=== PATIENT | male | born 1980 | race Caucasian/White ===

== ENCOUNTER 2018-05-22 10:14 | Emergency (ER) | payer SELFPAY ==
[~2018-05-22] VITALS: Ht 185.4 cm; Wt 101.1 kg
[2018-05-22] MEDS ORDERED: THIAMINE 100MG TABLET ONE (11:07)
[2018-05-22] MEDS ORDERED: LORazepam 1MG TABLET ONE (11:08)
[2018-05-22] MEDS ORDERED: THIAMINE 100MG TABLET PO ONE (11:30)
[2018-05-22] MEDS ORDERED: LORazepam 1MG TABLET PO ONE (11:30)
[2018-05-22 11:32] LABS: ALANINE AMINOTRANSFERASE 52 U/L (12-78); ALBUMIN 4.3 g/dL (3.4-5.0); ANION GAP 10 mmol/L (5-15); CALCIUM 8.9 mg/dL (8.5-10.1); CHLORIDE 106 mmol/L (98-107); CREATININE 0.79 mg/dL (0.7-1.3)
[2018-05-22 11:34] LABS: ALKALINE PHOSPHATASE 87 U/L (45-117); BILIRUBIN,TOTAL 0.3 mg/dL (0.2-1.0); TOTAL PROTEIN 7.4 g/dL (6.4-8.2)
[2018-05-22 11:38] LABS: BASOPHILS # (AUTO) 0.06 x10^3/uL (0-0.1); BASOPHILS % (AUTO) 1 % (0-1); EOSINOPHILS # (AUTO) 0.08 x10^3/uL (0-0.4); EOSINOPHILS % (AUTO) 1 % (1-7); LYMPHOCYTES # (AUTO) 1.77 x10^3/uL (1-3.4); LYMPHOCYTES % (AUTO) 26 % (22-44); MD NO; MEAN CORPUSCULAR HGB CONC 34.7 g/dL (33.2-36.2); MEAN CORPUSCULAR VOLUME 92.1 fL (81-97); MEAN PLATELET VOLUME 7.5 fL (7.4-10.4); MONOCYTES # (AUTO) 0.59 x10^3/uL (0.2-0.8); MONOCYTES % (AUTO) 8 % (2-9); NEUTROPHILS # (AUTO) 4.47 x10^3/uL (1.8-6.8); NEUTROPHILS % (AUTO) 64 % (42-75); PLATELET COUNT 334 x10^3/uL (130-400); RED BLOOD COUNT 4.97 x10^6/uL (4.38-5.82); RED CELL DISTRIBUTION WIDTH 12.9 % (9.4-14.8)
[2018-05-22 12:36] VITALS: BP 148/86
== END 2018-05-22 12:38 | disposition home or self-care (01) ==
LOC: ED 11:07
DX: F10.129 Alcohol abuse with intoxication, unspecified (principal); G40.909 Epilepsy, unspecified, not intractable, without status epilepticus; F17.210 Nicotine dependence, cigarettes, uncomplicated; Y90.9 Presence of alcohol in blood, level not specified
CPT/HCPCS: 36415; 80053; 85025; 93005; 99285

== ENCOUNTER 2018-07-31 17:14 | Emergency (ER) | payer SELFPAY ==
[~2018-07-31] VITALS: Ht 182.9 cm; Wt 105.1 kg
[2018-07-31 17:24] VITALS: BP 154/84
--- NOTE | 2018-07-31 18:14 | NUR ---
PT NOT IN ROOM. PT NOT SEEN IN BR, LOBBY, OR WHITE.
== END 2018-07-31 18:18 | disposition left against medical advice (07) ==
LOC: ED 17:35
DX: K08.89 Other specified disorders of teeth and supporting structures (principal); Z53.21 Procedure and treatment not carried out due to patient leaving prior to being seen by health care provider

== ENCOUNTER 2018-08-01 10:25 | Emergency (ER) | payer SELFPAY ==
[~2018-08-01] VITALS: Ht 185.4 cm; Wt 104.0 kg
[2018-08-01 10:31] VITALS: BP 161/93
--- NOTE | 2018-08-01 10:47 | NUR ---
PT TO ED FOR R DENTAL PAIN X4 DAYS. PA TO BEDSIDE FOR ASSESSMENT. AWAITING ORDERS.
== END 2018-08-01 11:10 | disposition home or self-care (01) ==
LOC: ED 11:00
DX: K08.89 Other specified disorders of teeth and supporting structures (principal); I10 Essential (primary) hypertension; G40.909 Epilepsy, unspecified, not intractable, without status epilepticus
CPT/HCPCS: 41800; 99283

== ENCOUNTER 2019-01-09 21:25 | Emergency (ER) | payer SELFPAY ==
[~2019-01-09] VITALS: Ht 185.4 cm; Wt 120.5 kg
--- NOTE | 2019-01-09 21:53 | NUR ---
PT STATES HE HAD A SEIZURE 0530 THIS MORNING WITH DIFFICULT WALKING AND CONFUSION POST SEIZURE THAT RESOLVED OVER TIME. ER MD AT BEDSIDE.
[2019-01-09] MEDS ORDERED: THIAMINE 100MG TABLET PO ONE (22:00)
--- NOTE | 2019-01-09 22:03 | NUR ---
seizure precautions applied
[2019-01-09 22:21] LABS: BASOPHILS # (AUTO) 0.12 x10^3/uL (0-0.1); BASOPHILS % (AUTO) 1 % (0-1); EOSINOPHILS # (AUTO) 0.09 x10^3/uL (0-0.4); EOSINOPHILS % (AUTO) 1 % (1-7); LYMPHOCYTES # (AUTO) 2.11 x10^3/uL (1-3.4); LYMPHOCYTES % (AUTO) 20 % (22-44); MD NO; MEAN CORPUSCULAR HEMOGLOBIN 33.4 pg (27.5-34.5); MEAN CORPUSCULAR HGB CONC 34.2 g/dL (33.2-36.2); MEAN CORPUSCULAR VOLUME 97.6 fL (81-97); MEAN PLATELET VOLUME 7.6 fL (7.4-10.4); MONOCYTES # (AUTO) 1.02 x10^3/uL (0.2-0.8); MONOCYTES % (AUTO) 10 % (2-9); NEUTROPHILS # (AUTO) 7.32 x10^3/uL (1.8-6.8); NEUTROPHILS % (AUTO) 69 % (42-75); PLATELET COUNT 345 x10^3/uL (130-400); RED BLOOD COUNT 5.04 x10^6/uL (4.38-5.82); RED CELL DISTRIBUTION WIDTH 12.9 % (9.4-14.8)
[2019-01-09 22:32] LABS: ALBUMIN 3.5 g/dL (3.4-5.0); ANION GAP 11 mmol/L (5-15); CALCIUM 8.4 mg/dL (8.5-10.1); CHLORIDE 103 mmol/L (98-107)
[2019-01-09 22:36] LABS: ALANINE AMINOTRANSFERASE 166 U/L (12-78); ALKALINE PHOSPHATASE 117 U/L (45-117); BILIRUBIN,TOTAL 0.6 mg/dL (0.2-1.0); CREATININE 1.16 mg/dL (0.7-1.3); TOTAL PROTEIN 6.7 g/dL (6.4-8.2)
[2019-01-09 22:59] VITALS: BP 145/93
--- NOTE | 2019-01-09 22:59 | NUR ---
PT RESTING ON GURNEY. REPORTS FEELING WELL. SPOUSE AT BEDSIDE. PT UP FOR RECHECK BY GRIS STEPHENSON
[2019-01-09] MEDS ORDERED: THIAMINE 100MG TABLET ONE (23:03)
== END 2019-01-10 00:15 | disposition left against medical advice (07) ==
LOC: ED 22:32
DX: F10.239 Alcohol dependence with withdrawal, unspecified (principal); F17.200 Nicotine dependence, unspecified, uncomplicated; I10 Essential (primary) hypertension; G40.909 Epilepsy, unspecified, not intractable, without status epilepticus
CPT/HCPCS: 36415; 80053; 80307; 83735; 85025; 99283

== ENCOUNTER 2019-10-24 17:21 | Emergency (ER) | payer MEDICAID ==
[~2019-10-24] VITALS: Ht 185.4 cm; Wt 131.8 kg
[2019-10-24 17:23] VITALS: BP 167/103
--- NOTE | 2019-10-24 17:38 | NUR ---
"I TOOK A BIG BONG HIT AND THEN FELL OFF MY BED COUGHING SO HARD" LAC TO FOREHEAD. PT REPORTS HAVING A COUGH X1 MONTH. PT REPORTS BLEEDING IS CONTROLLED AND DID NOT HAVE MUCH BLEEDING. PT DENIES LOSS OF LOC AND IS ORIENTED X4. PT DROVE HIMSELF HERE.
[2019-10-24] MEDS ORDERED: DIPH,PERTUSS(ACELL),TET VAC/PF 0.5 ML IM-VACC ONE ×2 (17:43→18:00)
--- NOTE | 2019-10-24 17:46 | NUR ---
PT TAKEN TO CT, DELIVERED TO DOOR BY RN. REGULATOR PIN INSERTER TO CALL FOR RN ASSISTANCE WITH PT RETURN.
--- NOTE | 2019-10-24 17:55 | NUR ---
PT RETURNED FROM CT. LAC IRRIGATED. ERPA AT BEDSIDE FOR REPAIR.
--- NOTE | 2019-10-24 18:24 | NUR ---
LUNCH RN: PT MEDICATED PER SEP. RAD COMPLETED, AWAITING READ. CT BACK. CALL LIGHT WITHIN REACH. PT RESTING COMFORTABLY IN BED AT THIS TIME
--- NOTE | 2019-10-24 19:03 | NUR ---
Jonathan RN. Pt D/C'd per orders. Verbalized understainding of D/C orders. Has steady gait upon D/C.
== END 2019-10-24 19:06 | disposition home or self-care (01) ==
LOC: ED 18:12
DX: S01.81XA Laceration without foreign body of other part of head, initial encounter (principal); S09.90XA Unspecified injury of head, initial encounter; R05 Cough; R55 Syncope and collapse; I10 Essential (primary) hypertension; G40.909 Epilepsy, unspecified, not intractable, without status epilepticus; Z87.891 Personal history of nicotine dependence; W06.XXXA Fall from bed, initial encounter; Y93.89 Activity, other specified; Y92.009 Unspecified place in unspecified non-institutional (private) residence as the place of occurrence of the external cause; Y99.8 Other external cause status
CPT/HCPCS: 12053; 70450; 71045; 90471; 90715; 99284